=== PATIENT | male | born 2000 | race Caucasian/White ===

== ENCOUNTER 2018-03-26 19:02 | Emergency (ER) | payer OTHER ==
[~2018-03-26] VITALS: Ht 185.4 cm; Wt 81.6 kg
[2018-03-26 19:30] VITALS: BP 106/68
--- NOTE | 2018-03-26 19:36 | NUR ---
TO LOBBY A/W BED, ALIREZA, VSS, NO BLEEDING AT THIS TIME , ERMMelinda NOTED
--- NOTE | 2018-03-26 20:30 | NUR ---
PATIENT AMBULATED TO ER BED 9.
--- NOTE | 2018-03-26 20:45 | NUR ---
PATIENT IS A 18 Y/O FEMALE BIB ALS WHO PRESENTS TO THE ED FOR SYNCOPAL EPISODE. PT STATES THAT HE WAS BIKING AT 1530 AND HIS R CALF GOT CAUGHT. NOTED LACERATION TO R CALF. PT REPORTS 5/10 ACHING LEG PAIN THAT DOES NOT RADIATE. PT DENIES CP, SOB, N/V/D. CONTROLLED BLEEDING, NO OBVIOUS INJURY, RR EVEN/UNLABORED. PT REPOSITIONED FOR COMFORT, BED IN LOWEST POSITION. ER MD DR. HOOD NOTIFIED. WILL CONTINUE TO MONITOR.
--- NOTE | 2018-03-26 21:30 | NUR ---
PT WOUND CLEANED WITH GAUZE AND NORMAL SALINE
--- NOTE | 2018-03-26 22:00 | NUR ---
PATIENT RESTING AT THIS TIME. NO SIGNS OF DISTRESS.
[2018-03-26] MEDS ORDERED: LIDOCAINE 1% ***ER ONLY *** 10 MG/ML VIAL INJ ONE (22:20)
[2018-03-26] MEDS ORDERED: BACITRACIN OINT 500 UNITS/GM PKT TP ONE (22:20)
[2018-03-26] MEDS ORDERED: LIDOCAINE 2% 1000 MG/50 ML VIAL INJ ONE (22:25)
--- NOTE | 2018-03-26 22:30 | NUR ---
DR. HOOD REPAIRING LACERATION.
[2018-03-26 22:35] VITALS: BP 119/72
== END 2018-03-26 22:35 | disposition home or self-care (01) ==
LOC: MED 19:02
DX: S81.811A Laceration without foreign body, right lower leg, initial encounter (principal); J45.909 Unspecified asthma, uncomplicated; Z90.49 Acquired absence of other specified parts of digestive tract; W45.8XXA Other foreign body or object entering through skin, initial encounter; Y93.89 Activity, other specified; Y92.89 Other specified places as the place of occurrence of the external cause; Y99.8 Other external cause status
CPT/HCPCS: 12002; 99283; J2001